=== PATIENT | female | born 1950 ===

== ENCOUNTER 2021-07-22 11:06 | Outpatient (CLI) | payer MEDICARE | END 2021-07-22 11:07 | disposition home or self-care (01) | LOC: CSHMRI 11:06 | PROVIDERS: ATTEND Orthopaedic Surgery | DX: M24.811 Other specific joint derangements of right shoulder, not elsewhere classified (principal); S46.111A Strain of muscle, fascia and tendon of long head of biceps, right arm, initial encounter; M25.411 Effusion, right shoulder ==